=== PATIENT | male | born 1950 | race Two or more races ===

== ENCOUNTER 2024-10-28 16:16 | Emergency (ER) | payer OTHER ==
[~2024-10-28] VITALS: Ht 177.8 cm; Wt 88.0 kg
[2024-10-28] MEDS ORDERED: COZAAR25 MG (16:28)
[2024-10-28] MEDS ORDERED: CITALOPRAM HBR10 MG (16:29)
[2024-10-28] MEDS ORDERED: CLONAZEPAM1 MG (16:30)
[2024-10-28] MEDS ORDERED: QUETIAPINE FUM400 M1 (16:30)
[2024-10-28] MEDS ORDERED: 0.9 % SODIUM CHLORIDE 1,000 ML IV ONE (17:00)
[2024-10-28] MEDS ORDERED: FAMOtidine 10 MG/ML (4ML VIAL) IV ONE (17:00)
[2024-10-28] MEDS ORDERED: CEFTRIAXONE SODIUM 1,000 MG VIAL IV ONE (17:00)
[2024-10-28] MEDS ORDERED: CEFTRIAXONE SODIUM 1,000 MG VIAL ONE (17:35)
[2024-10-28] MEDS ORDERED: FAMOTIDINE/PF 20 MG/2 ML VIAL ONE (17:35)
[2024-10-28 18:07] LABS: BASO % 0.8 % (0.1-1.2); EOS # 0.24 (0.04-0.54); EOS % 2.6 % (0.7-7.0); HEMOGLOBIN 12.9 g/dL (13.7-17.5); LYMPH # 2.13 (1.18-3.74); LYMPH % 22.8 % (19.3-53.1); MEAN CORPUSCULAR HEMOGLOBIN 31.2 pg (25.6-32.2); MONO # 0.99 (0.24-0.82); MONO % 10.6 % (4.7-12.5); NEUT # 5.86 (1.56-6.13); NEUT % 62.8 % (34.0-71.1); PLATELET COUNT 247 K/uL (163-369); RED BLOOD COUNT 4.14 M/uL (4.63-6.08); RED CELL DISTRIBUTION WIDTH 13.7 % (11.6-14.4)
[2024-10-28 18:22] LABS: INR 0.99; PARTIAL THROMBOPLASTIN TIME 25.5 SECONDS (22.0-34.0); PROTHROMBIN TIME 10.8 SECONDS (9.0-11.5)
[2024-10-28 18:32] LABS: ALBUMIN 3.3 gm/dL (3.4-5.0); BILIRUBIN TOTAL 0.52 mg/dL (0.3-1.2); CALCIUM 9.3 mg/dL (8.5-10.1); GFR 7.21; GLOBULINA 4.5 G/DL (2.4-3.5); POTASSIUM 4.82 mEq/L (3.5-5.1); TOTAL PROTEIN 7.8 gm/dL (6.4-8.2)
[2024-10-28 19:06] LABS: CREATININE SERUM 7.42 mg/dL (0.70-1.30)
[2024-10-28 19:49] LABS: URINE APPEARANCE Turbid; URINE BILIRRUBIN Small (NEGATIVE); URINE BLOOD Moderate; URINE COLOR Dark Yellow; URINE KETONE Trace (NEGATIVE); URINE LEUKOCYTE Large; URINE NITRATE Negative; URINE PROTEIN >=1000 (NEGATIVE)
[2024-10-28 19:53] LABS: URINE CAST 8.83 uL (0.0-1.40); URINE EPITHELIAL CELLS 22.7 uL (0.0-38.8); URINE RBC 241.1 uL (0.0-20.8); URINE WBC 865.9 uL (0.0-23.2)
[2024-10-28 20:05] LABS: URINE GLUCOSE 250 MG/DL (NEGATIVE)
[2024-10-28 20:06] LABS: URINE BACTERIA > 9821.5 uL (0.0-1933); URINE YEAST FEW /hpf
[2024-10-28] MEDS ORDERED: LevETIRAcetam 500 MG/5 ML VIAL IV ONE ×2 (21:30→21:31)
[2024-10-28] MEDS ORDERED: HYDROGEN PEROXIDE 473 ML BOTTLE TOP ONE (21:39)
[2024-10-28] MEDS ORDERED: LIDOCAINE HCL 1% 10ML VIAL ONE (22:01)
== END 2024-10-29 08:02 | disposition designated cancer center or children's hospital (05) ==
LOC: ER 16:16
PROVIDERS: General Practice
DX: S01.111A Laceration without foreign body of right eyelid and periocular area, initial encounter (principal); W19.XXXA Unspecified fall, initial encounter; Y93.89 Activity, other specified; Y92.511 Restaurant or cafe as the place of occurrence of the external cause; Y99.8 Other external cause status; I10 Essential (primary) hypertension; E11.9 Type 2 diabetes mellitus without complications
CPT/HCPCS: 36415; 70450; 70486; 71045; 72125; 72170; 96365; 96366; 99285; J0696; J3490 ×2; J7030